=== PATIENT | female | born 1955 | race Caucasian/White ===

== ENCOUNTER → 2020-02-12 | Outpatient (REF) | payer OTHER | LOC: M LAB REF 17:57 | PROVIDERS: ATTEND Physician Assistant | DX: L98.9 Disorder of the skin and subcutaneous tissue, unspecified (principal) ==

== ENCOUNTER → 2020-06-03 | Outpatient (REF) | payer BC, OTHER | LOC: M LAB REF 17:23 | PROVIDERS: ATTEND Physician Assistant | DX: D48.9 Neoplasm of uncertain behavior, unspecified (principal) ==

== ENCOUNTER → 2020-08-15 | Outpatient (REF) | payer BC | LOC: M LAB REF 13:55 | PROVIDERS: ATTEND Physician Assistant | DX: C44.229 Squamous cell carcinoma of skin of left ear and external auricular canal (principal) ==

== ENCOUNTER → 2020-11-29 | Outpatient (REF) | payer BC | LOC: M LAB REF 19:31 | PROVIDERS: ATTEND Physician Assistant | DX: L82.1 Other seborrheic keratosis (principal) ==

== ENCOUNTER → 2021-02-21 | Outpatient (REF) | payer BC | LOC: M LAB REF 19:08 | PROVIDERS: ATTEND Dermatology | DX: L57.0 Actinic keratosis (principal); L83 Acanthosis nigricans ==

== ENCOUNTER → 2021-03-15 | Outpatient (REF) | payer BC | LOC: M LAB REF 15:09 | PROVIDERS: ATTEND Dermatology | DX: H61.012 Acute perichondritis of left external ear (principal) ==

== ENCOUNTER → 2021-09-01 | Outpatient (REF) | payer BC, OTHER | LOC: M LAB REF 14:25 | PROVIDERS: ATTEND Physician Assistant | DX: C44.509 Unspecified malignant neoplasm of skin of other part of trunk (principal) ==

== ENCOUNTER → 2022-03-08 | Outpatient (REF) | payer OTHER | LOC: M SFHCDERM 19:19 | PROVIDERS: ATTEND Dermatology | DX: H61.002 Unspecified perichondritis of left external ear (principal) ==

== ENCOUNTER → 2022-03-15 | Outpatient (REF) | payer OTHER | LOC: M SFHCDERM 14:21 | PROVIDERS: ATTEND Physician Assistant | DX: C44.319 Basal cell carcinoma of skin of other parts of face (principal) ==

== ENCOUNTER → 2024-03-26 | Outpatient (REF) | payer OTHER, MEDICARE | LOC: M SFHCDERM 16:02 | PROVIDERS: ATTEND Physician Assistant | DX: D49.2 Neoplasm of unspecified behavior of bone, soft tissue, and skin (principal) ==

== ENCOUNTER → 2025-04-19 | Outpatient (REF) | payer OTHER, MEDICARE | LOC: M SFHCDERM 17:52 | PROVIDERS: ATTEND Physician Assistant | DX: D49.2 Neoplasm of unspecified behavior of bone, soft tissue, and skin (principal) ==